=== PATIENT | male | born 1960 | race African-American/Black ===

== ENCOUNTER 2021-12-08 08:54 | Emergency (ER) | payer OTHER ==
[2021-12-08 09:01] VITALS: BP 120/75; PULSE 66; RESP 18; TEMP 98; BMI 20.9
[2021-12-08] MEDS ORDERED: DIPHTH,PERTUSS(ACELL),TET 0.5 ML DISP.SYRIN IM ONE ×2 (09:55→10:02)
[2021-12-08] MEDS ORDERED: ACETAMINOPHEN 500 MG TABLET (FP) PO ONE (10:01)
[2021-12-08] MEDS ORDERED: ACETAMINOPHEN 500 MG TABLET (FP) ONE (10:02)
== END 2021-12-08 11:03 | disposition home or self-care (01) ==
LOC: JERFT 08:54
PROC: 0JQ10ZZ Repair Face Subcutaneous Tissue and Fascia, Open Approach (ICD-10-PCS; principal; 2021-12-08)
PROC: 3E0234Z Introduction of Serum, Toxoid and Vaccine into Muscle, Percutaneous Approach (ICD-10-PCS; 2021-12-08)
DX: S09.90XA Unspecified injury of head, initial encounter (principal); S01.80XA Unspecified open wound of other part of head, initial encounter
CPT/HCPCS: 70450-TC; 72125-TC; 90715; 99285-25